=== PATIENT | female | born 1985 | race Caucasian/White ===

== ENCOUNTER 2018-01-06 13:42 | Outpatient (CLI) | payer BC ==
[~2018-01-06] VITALS: Ht 167.6 cm; Wt 145.0 kg
[2018-01-06] MEDS ORDERED: SYNTHROID50 MCG PO (14:14)
[2018-01-06] MEDS ORDERED: PRENATAL TABLE1 EAC3 PO (14:14)
[2018-01-06] MEDS ORDERED: MACROBID100 MG PO (14:14)
[2018-01-06] MEDS ORDERED: FIORICET 50-301 EAC1 PO (14:15)
[2018-01-06 14:24] VITALS: BP 139/63
== END 2018-01-06 15:40 | disposition home or self-care (01) ==
LOC: LDRP-OP 13:42 → 2WEST 13:43 → LDRP-OP 02-13 13:27
DX: O26.893 Other specified pregnancy related conditions, third trimester (principal); O99.283 Endocrine, nutritional and metabolic diseases complicating pregnancy, third trimester; E03.9 Hypothyroidism, unspecified; O99.333 Smoking (tobacco) complicating pregnancy, third trimester; F17.200 Nicotine dependence, unspecified, uncomplicated; Z3A.39 39 weeks gestation of pregnancy
CPT/HCPCS: 59025; G0378

== ENCOUNTER 2018-01-06 20:51 | Outpatient (CLI) | payer BC ==
[~2018-01-06] VITALS: Ht 167.6 cm; Wt 146.1 kg
[~2018-01-06 20:51] MED LIST: FIORICET 50-301 EAC1 PO; MACROBID100 MG PO; PRENATAL TABLE1 EAC3 PO; SYNTHROID50 MCG PO
[2018-01-06 21:13] VITALS: BP 161/77
[2018-01-06 21:24] VITALS: BP 130/62
== END 2018-01-06 23:45 | disposition home or self-care (01) ==
LOC: LDRP-OP 20:51 → 2WEST 20:52 → LDRP-OP 02-13 15:56
DX: O47.1 False labor at or after 37 completed weeks of gestation (principal); E03.9 Hypothyroidism, unspecified; O99.283 Endocrine, nutritional and metabolic diseases complicating pregnancy, third trimester; O99.333 Smoking (tobacco) complicating pregnancy, third trimester; F17.200 Nicotine dependence, unspecified, uncomplicated; Z3A.39 39 weeks gestation of pregnancy
CPT/HCPCS: 59025; G0378